=== PATIENT | female | born 1960 | race African-American/Black ===

== ENCOUNTER 2017-12-07 09:59 | Emergency (ER) | payer OTHER ==
[2017-12-07] MEDS ORDERED: predniSONE 10 MG TABLET (11:01)
[2017-12-07] MEDS: predniSONE 10 MG TABLET PO (11:03)
[2017-12-07] MEDS: IPRATRPIUM/ALBUTEROL 0.5/2.5MG 3 ML NEBU. NEB (11:10)
== END 2017-12-07 12:00 | disposition home or self-care (01) ==
LOC: ER 12:00
DX: J20.9 Acute bronchitis, unspecified (principal); E78.00 Pure hypercholesterolemia, unspecified; J45.909 Unspecified asthma, uncomplicated; Z98.51 Tubal ligation status
CPT/HCPCS: 71046; 94640; 99284-25; J7512; J7620

== ENCOUNTER → 2017-12-07 | Outpatient (CLI) | payer OTHER | END | disposition home or self-care (01) | LOC: MAMMO 09:33 | DX: Z12.31 Encounter for screening mammogram for malignant neoplasm of breast (principal) | CPT/HCPCS: 77063; 77067 ==